=== PATIENT | female | born 1930 | race Caucasian/White ===

== ENCOUNTER 2016-07-14 16:57 | Inpatient (IN) | payer OTHER ==
[~2016-07-14] VITALS: Ht 172.7 cm; Wt 57.6 kg
[2016-07-14] VITALS (7 sets, daily range): BP systolic 109–143; BP diastolic 52–76
[~2016-07-14 16:57] MED LIST: AMLO10TA2 PO; ATOR10TA PO; DONE5TAB34 PO
--- NOTE | 2016-07-14 17:00 | NUR ---
JOSE C RA FROM HOME FOR ALTERED MENTAL STATUS, SON CALLED 911 UPON DISCOVERING PATIENT, LAST WELL KNOWN TIME WAS LAST NIGHT MIDNIGHT, PATIENT IS NON VERBAL, NON RESPONSIVE, PLACED ON MONITOR AND GOWN, EKG, LABS, IV LINE, COMPLETED, MD AT BEDSIDE, TAKEN TO CT, WILL CONTINUE TO MONITOR CLOSELY.
--- NOTE | 2016-07-14 17:02 | NUR ---
CALLED CT FOR STAT CT HEAD
[2016-07-14 17:13] LABS: BASOPHILS # (AUTO) 0.1 /CMM (0.0-0.2); BASOPHILS % (AUTO) 0.4 % (0.0-2.0); EOSINOPHILS # (AUTO) 0.1 /CMM (0.0-0.7); EOSINOPHILS % (AUTO) 0.4 % (0.0-6.0); HEMATOCRIT 36 % (33-45); HEMOGLOBIN 12.1 g/dL (11.5-14.8); LYMPHOCYTES # (AUTO) 2.7 /CMM (0.8-4.8); LYMPHOCYTES % (AUTO) 19.4 % (20.0-44.0); MEAN CORPUSCULAR HEMOGLOBIN 31 PG (26.0-33.0); MEAN CORPUSCULAR HGB CONC 34 g/dl (31.0-36.0); MEAN CORPUSCULAR VOLUME 92 fL (82-100); MONOCYTES # (AUTO) 1.2 /CMM (0.1-1.30); NEUTROPHILS # (AUTO) 9.6 /CMM (1.8-8.9); NEUTROPHILS % (AUTO) 70.8 % (43.0-81.0); PLATELET COUNT (AUTO) 395 /CMM (150-450); RDW COEFFICIENT OF VARIATION 12.4 (11.5-15.0); RED BLOOD CELL COUNT(AUTO) 3.88 MIL/uL (4.0-5.2); WHITE BLOOD COUNT (AUTO) 13.8 K/uL (4.3-11.0)
[2016-07-14 17:22] LABS: CALCIUM, SERUM 10.5 mg/dL (8.5-10.1); CREATININE 3.5 mg/dL (0.6-1.3); POTASSIUM 4.7 mmol/L (3.5-5.1)
--- NOTE | 2016-07-14 17:24 | NUR ---
CALLED NURSING SUP. FOR ICU BED
[2016-07-14 17:25] LABS: INR 1.12 (0.87-1.13); PROTHROMBIN TIME 11.7 SECS (9.5-12.7)
[2016-07-14] MEDS ORDERED: IV NS 0.9% 1,000 ML BAG IV ONE (17:30)
[2016-07-14] MEDS ORDERED: IV NS 0.9% 1,000 ML ONE (17:35)
[2016-07-14] MEDS ORDERED: IV SET PRIMARY 1 EA INFUS.SET MC ONE ×2 (17:35→18:59)
--- NOTE | 2016-07-14 17:37 | NUR ---
CALLED RAYMUNDO GARZA, . LEFT MESSAGE ON VOICEMAIL
[2016-07-14] MEDS ORDERED: AMLO10TA2 PO (17:39)
[2016-07-14] MEDS ORDERED: ATOR10TA PO (17:39)
[2016-07-14 17:46] LABS: TROPONIN I 4.268 ng/mL (0.00-0.056)
--- NOTE | 2016-07-14 17:46 | NUR ---
CALLED , LEFT MESSAGE ON VOICEMAIL
--- NOTE | 2016-07-14 18:08 | NUR ---
REPAGED , LEFT MESSAGE ON VOICEMAIL
[2016-07-14 18:10] LABS: APPEARANCE,URINE Cloudy (CLEAR); BILIRUBIN,URINE Negative (NEGATIVE); BLOOD, URINE Large Ery/uL (NEGATIVE); COLOR,URINE Yellow (YELLOW); KETONES,URINE Negative (NEGATIVE); LEUKOCYTE ESTERASE ,URINE Small (NEGATIVE); NITRITE, URINE Negative (NEGATIVE); PH,URINE 5.5 (5.0-8.0); PROTEIN,URINE 100 mg/dl (NEGATIVE); UROBILINOGEN,URINE 0.2 EU/dL (0.2)
[2016-07-14 18:13] LABS: UGLUCOSE 100 MG/DL mg/dL (NEGATIVE)
[2016-07-14] MEDS ORDERED: LABETALOL 20 MG/4 ML VIAL ONE (18:13)
--- NOTE | 2016-07-14 18:21 | NUR ---
PATIENT HAS MORE TONE IN LEFT ARM, AND RIGHT ARM IS WITHOUT ANY MUSCLE TONE
[2016-07-14 18:24] LABS: ADD URINE CULTURE YES; BACTERIA,URINE Moderate /HPF (None Seen); SQUAMOUS EPITHELIAL CELL,UR Few /HPF (None Seen)
--- NOTE | 2016-07-14 18:24 | NUR ---
CALLED (CONTROL ROOM TENDER), TRANSFERRED CALL TO
[2016-07-14] MEDS ORDERED: LABETALOL HCL IV 100MG VIAL IV ONE (18:30)
--- NOTE | 2016-07-14 18:32 | NUR ---
LEFT ANOTHER MESSAGE ON 'S VOICEMAIL
--- NOTE | 2016-07-14 18:34 | NUR ---
KAYLA FONSECA, ON PHONE WITH
--- NOTE | 2016-07-14 18:46 | NUR ---
CALLED TO GIVE REPORT, WAS TOLD CHARGE WILL CALL BACK
--- NOTE | 2016-07-14 18:51 | NUR ---
CALLED , LEFT MESSAGE ONM VOICEMAIL
[2016-07-14] MEDS ORDERED: CEFTRIAXONE 1GM BAG (ER ONLY) 50 ML IV ONE (18:59)
[2016-07-14] MEDS ORDERED: CEFTRIAXONE 1 G in IV D5W 50 ML IV SCH (19:00)
[2016-07-14] MEDS: AMLODIPINE BESYLATE 10 MG TABLET PO SCH (19:12)
[2016-07-14] MEDS: PANTOPRAZOLE 40 MG TABLET.DR PO SCH (19:16)
[2016-07-14] MEDS: DONEPEZIL 5 MG TABLET PO SCH (19:30)
[2016-07-14] MEDS ORDERED: ASPIRIN EC 325 MG TABLET.DR PO SCH (19:30)
--- NOTE | 2016-07-14 20:04 | NUR ---
BELTING CUTTER DF PT PO MEDS NON ADMIN 2ND NPO DIAGNOSIS. PT S/P CVA ALTERED MENTAL STATUS. PT UNABLE TO VERBALIZE. PT CAN FOLLOW SIMPLE COMMANDS LIKE MOVING LEFT UPPER ARM.PT WITH RIGHT SIDE FACIAL DROOP.PT UNABLE TO OPEN LEFT EYE PUPILS SLUGGISH AT 2MM. PT UNABLE TO VERBALIZE APHASIC. PT UNABLE TO SAY HER NAME AND SPEAK. PT CAN MOVE LEFT ARM WITH SEVERE WEAKNESS CAN MOVE LEFT FOOT/TOES SEVERE WEAKNESS. PT RIGHT ARM FLACCID/RIGHT LEG FLACCID CAN WIGGLE TOES ON RIGHT FOOT. PT CT SCAN HEAD DISPLAYING INFARCTS(SEE CT SCAN OF HEAD) PT WITH PROLONGED LAST TIME WELL PER REPORT OVER 24HOURS AGO PT WAS SEEN ACTIGN WITHIN BASELINE MENTAL STATUS AND TODAY WAS DISCOVERED AMS. NEUROLOGY/CARDIOLOGY CONSULTED PER REPORT ER MD IN CONVERSATION WITH NEURO/CARDIAC MD,S. ADMITTING ORDERS RECEIVED FROM MD WESTFALL. PT VSS PT RECEIVED ON NON REBREATHER MASK AT 15LPM WITH O2 SAT OF 100%. I PLACED PT ON NASAL CANULA AT 5LPM O2 SAT OF 95-97%. PT BILATERAL UPPER LOBES CLEARED DIMINISHED IN LOWER BASES WITH COARSE BREATH SOUNDS. PT WAS ADMINISTERED ROCEPHIN IVPB BY ER STAFF. Addendum: 07/15/16 at 0607 by HUGO LOGAN RN PT WITH AFIB/AFLUTTER PT WITH HX OF AFIB PER LAST ADMISSION RECORDS.
--- NOTE | 2016-07-14 21:30 | NUR ---
FURNACE OPERATOR OIL OR GAS DF PT SON DRE AT BEDSIDE TO VISIT WITH MOTHER. I UPDATED DRE REGARDING POC AND HE VERBALIZED A GOOD UNDERSTANDING OF PROGNOSIS/POC. VSS.NAD NOTED. PT WITH MOMENTS WHERE SHE WILL WAKE UP OPEN BOTH EYES FOLLOW COMMANDS AND SQUEEZE WITH LEFT HAND FOLLOWED BY MOMENTS OF LETHARGY. ORDER TO INSERT NGT PT UNABLE TO SWALLOW SAFELY AT THIS TIME.SWALLOW EVAL ORDERED PER MD.
[2016-07-14] MEDS: HEPARIN SODIUM, PORCINE 5000 UNITS/1 ML VIAL SQ SCH (21:49)
[2016-07-14] MEDS ORDERED: ATORVASTATIN 10 MG TABLET PO SCH (22:00)
--- NOTE | 2016-07-14 23:08 | NUR ---
BOTTOM PRESSER DF PT DESATURATING PT ON NC @ 4LPM WAS O2SAT OF 92-95% PT NOW WITH O2 SAT OF 92% ON NON REBREATHER MASK. PRIOR TO NRM I PLACED PT ON SIMPLE MASK @ 10LPM O2 SAT OF 88-89%. STAT ABG ORDERED AWAITING RT. PT ON NRM@15LPM.
[2016-07-14 23:37] LABS: ABG OXYGEN SATURATION 93.8 % (92.0-98.5); ABG PCO2 23.4 mmHg (35.0-45.0); ABG PH 7.393 (7.350-7.450); ABG PO2 65.3 mmHg (75.0-100.0); ABG TOTAL HEMOGLOBIN 13.1 G/dL (12.0-16.0); AaDO2 624.3 mmHg; MetHb 0.7 % (0.0-1.5); O2Hb 92.2 % (94.0-97.0); SITE, ABG Right Radial; VENT MODE, BG NRB
--- NOTE | 2016-07-14 23:46 | NUR ---
MONUMENT CARVER DF ABG RESULTED VALUE OF PH 7.39/PCO2 23.4/PO265/HCO3 13.9/O2SAT 93.8%. PT O2SAT IMPROVED O2 SAT OF 97% ON NRM. VSS
--- NOTE | 2016-07-14 23:55 | NUR ---
@2690 stat abg done. RN NOTIFIED WITH THE RESULT.
[2016-07-15] VITALS (15 sets, daily range): BP systolic 105–151; BP diastolic 58–85
--- NOTE | 2016-07-15 00:39 | NUR ---
LAST REPAIRER HELPER DF ATTEMPTING TO INSERT NGT PT UNCOOPERATIVE MOVING FACE ATTEMPTING TO REMOVE NGT WITH LEFT ARM. PT NOTED WITH SOME MOVEMENT OF THE RIGHT UPPER ARM PT ABLE TO ROTATE WRIST AND ATTEMPTS TO LIFT RIGHT ARM UNABLE PT WITH SEVERE WEAKNESS. Addendum: 07/15/16 at 0044 by HUGO LOGAN RN PT HAS SWALLOW EVAL IN AM.SON AT BEDSIDE EARLIER EXPRESSED DOESNT WANT MOTHER TO BE UNCOMFORTABLE IF NOT NECESSARY.WILL AWAIT SWALLOW EVAL MD CHAMPAGNE IN AM.
[2016-07-15 04:47] LABS: HEMATOCRIT 39 % (33-45); HEMOGLOBIN 12.9 g/dL (11.5-14.8); LYMPHOCYTES % (AUTO) 3.9 % (20.0-44.0); MEAN CORPUSCULAR HEMOGLOBIN 31 PG (26.0-33.0); MEAN CORPUSCULAR HGB CONC 33 g/dl (31.0-36.0); MEAN CORPUSCULAR VOLUME 95 fL (82-100); MONOCYTES # (AUTO) 0.9 /CMM (0.1-1.30); MONOCYTES % (AUTO) 3.6 % (2.0-12.0); NEUTROPHILS # (AUTO) 22.9 /CMM (1.8-8.9); NEUTROPHILS % (AUTO) 92.5 % (43.0-81.0); PLATELET COUNT (AUTO) 423 /CMM (150-450); RDW COEFFICIENT OF VARIATION 13.4 (11.5-15.0); RED BLOOD CELL COUNT(AUTO) 4.14 MIL/uL (4.0-5.2); WHITE BLOOD COUNT (AUTO) 24.8 K/uL (4.3-11.0)
[2016-07-15 04:54] LABS: CALCIUM, SERUM 9.8 mg/dL (8.5-10.1); CREATININE 3.6 mg/dL (0.6-1.3)
[2016-07-15 05:18] LABS: BAND % (MANUAL) 2 % (0.0-5.0); LYMPHOCYTES % (MANUAL) 5 % (16-48); MONOCYTES % (MANUAL) 8 % (0-11.0); NEUTROPHILS % (MANUAL) 85 (42-76)
[2016-07-15 05:19] LABS: PLATELET ESTIMATE ADEQUATE
[2016-07-15] MEDS ORDERED: IV SET PRIMARY PUMP SET 1 EA INFUS.SET MC ONE ×2 (06:08→09:55)
[2016-07-15] MEDS ORDERED: IV NS 0.9% 250 ML IV ONE (06:08)
--- NOTE | 2016-07-15 07:30 | NUR ---
ICU/RN: PT RECEIVED IN BED, LETHARGIC, RESPONDS TO LIGHT PAIN. RIGHT EYE WITH BRISK REFLEXES, DIFFICULTY OPENING NOTED ON L EYE. R ARM FLACCID; L AND R LOWER EXTREMITIES + REFLEXES. L HAND WITH MUSCLE TONE NOTED, ABLE TO FOLLOW SOME COMMANDS. HOB ELEVATED PER ASPIRATION PRECAUTIONS. WILL CONT TO MONITOR PT.
[2016-07-15] MEDS: DONEPEZIL 5 MG TABLET PO SCH (08:22)
[2016-07-15] MEDS: PANTOPRAZOLE 40 MG TABLET.DR PO SCH (08:22)
[2016-07-15] MEDS: HEPARIN SODIUM, PORCINE 5000 UNITS/1 ML VIAL SQ SCH (08:28)
[2016-07-15] MEDS: AMLODIPINE BESYLATE 10 MG TABLET PO SCH (08:43)
[2016-07-15] MEDS ORDERED: INSULIN REGULAR, HUMAN 100 UNIT/ML 3 ML VIAL SQ PRN (09:00)
[2016-07-15] MEDS ORDERED: DEXTROSE 50%-WATER 50 ML DISP.SYRIN IV PRN (09:00)
[2016-07-15] MEDS ORDERED: METOPROLOL TARTRATE 25 MG TABLET PO SCH (09:00)
--- NOTE | 2016-07-15 09:30 | NUR ---
ICU/RN: DR LLANES AT THE BEDSIDE FOR NEURO CONSULT; UPDATED ON PT STATUS. INFORMED MD THAT PT WAS ON HOSPICE PRIOR TO ADMISSION, AND PER DR WESTFALL, STILL WAITING FOR SONS TO CALL BACK REGARDING CONTINUING FULL TREATMENT. PER MD, "HOLD OFF ANTIHYPERTENSIVES FOR NOW FOR PERMISSIVE HYPERTENSION, HOLD ANTICOAGULANTS." NEW ORDERS NOTED AND CARRIED OUT.
[2016-07-15] MEDS ORDERED: BLOOD SUGAR DIAGNOSTIC 1 EACH STRIP IN SCH (12:00)
--- NOTE | 2016-07-15 13:30 | NUR ---
ICU/RN: FAMILY AT THE BEDSIDE. POC DW SON KAYLA, TEARFULLY STATES "MY REQUEST IS TO HAVE HER DISCHARGED HOME BACK ON HOSPICE. NOTHING INVASIVE LIKE BREATHING TUBES OR FEEDING TUBES PLEASE." GENERATION ENGINEER UPDATED. DR WESTFALL PAGED FOR ORDERS.
[2016-07-15] MEDS ORDERED: ASPIRIN EC 325 MG TABLET.DR PO SCH (15:30)
--- NOTE | 2016-07-15 15:49 | NUR ---
ICU/RN: PT DC HOME WITH HOSPICE IN STABLE CONDITION, NO DISTRESS NOTED. IV HL X3 AND FC DISCONTINUED. PER PAULETTE MAYORGA, SON IS AWARE OF ORE ROASTER. ALL PAPERWORK AND BELONGINGS SIGNED AND ACCOUNTED FOR; CO-SIGNED BY 2ND RN, PT UNABLE TO SIGN. PT LEFT UNIT VIA GURNEY, SENT HOME VIA AMBULANCE
== END 2016-07-15 15:50 | disposition hospice, home (50) | DRG 64 ==
LOC: ER 16:58 → ICU 18:55
PROVIDERS: ADMIT Internal Medicine; ATTEND Internal Medicine
DX: I63.412 Cerebral infarction due to embolism of left middle cerebral artery (principal); G93.40 Encephalopathy, unspecified; I21.4 Non-ST elevation (NSTEMI) myocardial infarction; N17.9 Acute kidney failure, unspecified; I13.0 Hypertensive heart and chronic kidney disease with heart failure and stage 1 through stage 4 chronic kidney disease, or unspecified chronic kidney disease; N39.0 Urinary tract infection, site not specified; I50.9 Heart failure, unspecified; N18.9 Chronic kidney disease, unspecified; F03.90 Unspecified dementia, unspecified severity, without behavioral disturbance, psychotic disturbance, mood disturbance, and anxiety; E78.5 Hyperlipidemia, unspecified; E11.22 Type 2 diabetes mellitus with diabetic chronic kidney disease; Z51.5 Encounter for palliative care
CPT/HCPCS: 36415; 36600; 70450-TC; 71010-TC; 80048-TC; 80061-TC; 81000-TC; 82803-TC; 82962-TC; 84484-TC; 85025-TC; 85730-TC; 87081-TC; 87086-TC; 92611-TC; 94760-TC; 94799-TC; 97001-TC; A4606; J0696; J1644; J1815; J3480; J3490; J7030; J7050; J7060; Z7610